=== PATIENT | female | born 1935 | race Caucasian/White ===

== ENCOUNTER → 2017-02-06 | Outpatient (CLI) | payer OTHER | LOC: GIMAGING 14:59 | PROVIDERS: ATTEND Registered Nurse | DX: R06.02 Shortness of breath (principal); I48.91 Unspecified atrial fibrillation; J44.9 Chronic obstructive pulmonary disease, unspecified | CPT/HCPCS: 71020-PO ==

== ENCOUNTER 2017-02-26 09:53 | Emergency (ER) | payer OTHER, BC ==
[2017-02-26 10:16] VITALS: RESP 18
--- NOTE | 2017-02-26 10:33 | CPEKG ---
Heart Rate: 93 RR Interval: 645 P-R Interval: 128 QRSD Interval: 112 QT Interval: 396 QTC Interval: 493 P Phoenix: 64 QRS Phoenix: -36 T Wave Phoenix: 92 EKG Severity - ABNORMAL ECG - EKG Impression: SINUS RHYTHM EKG Impression: LVH WITH IVCD, LAD AND SECONDARY REPOL ABNRM Electronically Signed By: Bev Lazo 26-Feb-2017 14:53:47
--- NOTE | 2017-02-26 10:41 | EDPHY ---
H & P Time Seen by Provider: 02/26/17 10:01 HPI/ROS: CHIEF COMPLAINT: Shortness of breath, generalized weakness HISTORY OF PRESENT ILLNESS: 82-year-old female with a history of COPD and atrial fibrillation presents with shortness of breath and generalized weakness. Over the last 2 days, she has felt generalized weakness. The weakness increases with standing. Associated with lack of appetite. She also has a 3 month history of gradually increasing shortness of breath. She saw her primary care provider who gave her an inhaler for COPD with some relief. Associated with a chronic cough, without recent change. She is mainly concerned that Eliquis is causing side effects and that this is the reason for the shortness of breath and generalized weakness. Because of this, she has started taking aspirin in the morning and Eliquis at night. Recent cardiac catheterization and nuclear stress test performed in 07/2016 in [place] reportedly normal. No chest pain or chest pressure today. No recent illness, fever or injury. REVIEW OF SYSTEMS: Constitutional: No fever, no chills Eyes: No visual changes ENT: No sore throat Cardiac: No chest pain Gastrointestinal: No nausea, no vomiting, no abdominal pain Genitourinary: No hematuria, no dysuria Musculoskeletal: No leg pain or swelling Skin: No rash Neurological: No headache Psychiatric: Feels anxious Past Medical/Surgical History: Atrial fibrillation, on Eliquis COPD Rheumatoid arthritis Social History: Lives at [facility] in her own apartment Smoking Status: Never smoked Physical Exam: General Appearance: Alert, pleasant Eyes: Pupils equal and round, no conjunctival pallor or injection ENT, Mouth: Mucous membranes moist Neck: Normal inspection Respiratory: normal respiratory rate, rales chcf up bilaterally Cardiovascular: Regular rate and rhythm, 2/6 systolic murmur Gastrointestinal: Abdomen is soft and nontender Neurological: A&O, nonfocal exam Skin: Warm and dry, no rash Extremities: Deformity of digits Psychiatric: Mood and affect normal Constitutional: Initial Vital Signs Heart Rate 87 02/26/17 10:13 Respiratory Rate 18 02/26/17 10:13 Blood Pressure 150/102 H 02/26/17 10:13 O2 Sat (%) 95 02/26/17 10:13 O2 Delivery Mode Room Air Allergies/Adverse Reactions: No Known Allergies Allergy (Unverified 02/26/17 10:17) Medical Decision Making - Diagnostics EKG Interpretation: EKG interpreted by me reveals normal sinus rhythm, rate 93, LVH. Interpretation abnormal EKG Imaging Results: Chest x-ray independently reviewed by me reveals no acute infiltrate. ED Course/Re-evaluation: This patient presents with generalized weakness and fatigue, mainly concerned about her Eliquis. Vital signs are normal, including oxygen saturation of 95% on room air. EKG reveals normal sinus rhythm, without evidence of ischemia or dysrhythmia. I will proceed with a cardiopulmonary evaluation and look for any sign of infection, including urinary source. Laboratory testing, urinalysis and x-ray revealed no acute etiology for patient' s symptoms. She ambulated throughout the emergency department with a steady gait and maintained an oxygen saturation of 93% on room air. I feel that she is safe and stable for discharge home. I think that the primary concern is the Eliquis and she would like to discontinued Eliquis. I suggested that she follow up with her primary physician to consider taking aspirin instead. For now she will continue Eliquis. Differential Diagnosis: Altered mental status including but not limited to congestive heart failure, pneumonia, urinary tract infection, COPD exacerbation, hypoglycemia, infectious process, electrolyte abnormality, head injury and intoxicants. - Data Points Laboratory Results: Laboratory Results 02/26/17 11:20 02/26/17 11:20 Departure - Departure Disposition: Home, Routine, Self-Care Clinical Impression: Generalized weakness Dyspnea Qualifiers: Dyspnea type: dyspnea on exertion Qualified Code(s): R06.09 - Other forms of dyspnea Condition: Good Instructions: Weakness (ED), Dyspnea (ED) Additional Instructions: Return for worsening symptoms or any concerns. Referrals: Mehreen Minaya, COMMUNITY RELATIONS OFFICER [Primary Care Provider] - As per Instructions (Call to make an appointment.)
[2017-02-26 11:13] VITALS: O2SAT 97
[2017-02-26 11:29] LABS: PLATELET COUNT 234 10^3/uL (150-400)
[2017-02-26 12:13] VITALS: BP 122/78; PULSE 88
== END 2017-02-26 12:57 | disposition home or self-care (01) ==
DX: R06.09 Other forms of dyspnea (principal); R53.1 Weakness; J44.9 Chronic obstructive pulmonary disease, unspecified

== ENCOUNTER 2017-03-07 17:35 | Emergency (ER) | payer OTHER, BC ==
[2017-03-07 17:58] VITALS: TEMP 97.5
--- NOTE | 2017-03-07 18:13 | CPEKG ---
Heart Rate: 91 RR Interval: 659 P-R Interval: 116 QRSD Interval: 102 QT Interval: 380 QTC Interval: 468 P Laverne: 56 QRS Laverne: -37 T Wave Laver[place]: 120 EKG Severity - ABNORMAL ECG - EKG Impression: SINUS RHYTHM EKG Impression: LEFT AXIS DEVIATION EKG Impression: LVH WITH SECONDARY REPOLARIZATION ABNORMALITY EKG Impression: ANTERIOR ST ELEVATION, PROBABLY DUE TO LVH Electronically Signed By: Corey Brand 07-Mar-2017 21:55:13
--- NOTE | 2017-03-07 18:40 | EDPHY ---
H & P Stated Complaint: pt c/o sob and palpatation- states anxiety, dtg request Mental eval Time Seen by Provider: 03/07/17 18:21 - Medical/Surgical History Hx Asthma: Yes Hx Chronic Respiratory Disease: Yes Hx Diabetes: No Hx Cardiac Disease: Yes Hx Renal Disease: No Hx Cirrhosis: No Hx Alcoholism: No Hx HIV/AIDS: No Hx Splenectomy or Spleen Trauma: No Other PMH: rhuemtoid arthritis, osteo arthritis, diverticulitis, anorexia, a- fib. anxety - Social History Smoking Status: Never smoked Constitutional: Initial Vital Signs Temperature (C) 36.4 C 03/07/17 17:54 Heart Rate 92 03/07/17 17:54 Respiratory Rate 20 03/07/17 17:54 Blood Pressure 149/91 H 03/07/17 17:54 O2 Sat (%) 90 L 03/07/17 17:54 O2 Delivery Mode Room Air Allergies/Adverse Reactions: No Known Allergies Allergy (Unverified 02/26/17 10:17) Home Medications: Medication Instructions Recorded Aspirin 03/07/17 Metoprolol Tartrate 03/07/17 Prednisone 03/07/17 Qvar 03/07/17 Medical Decision Making ED Course/Re-evaluation: CHIEF COMPLAINT: Anxiety HISTORY OF PRESENT ILLNESS: 82-year-old female with significant anxiety. She lives at [facility]. She has a history of atrial fibrillation and sometimes gets palpitations. She had a few palpitations today and then she got very anxious. She decided to go to an urgent care but they thought that she would be best seen at an emergency department. She came here but she said by the time she got her all her symptoms were better and she does no longer feel anxious. She has a long history of anxiety. REVIEW OF SYSTEMS: A 10 point review of systems was performed and is negative with the exception of the elements mentioned in the history of present illness. PHYSICAL EXAM: HR, BP, O2 Sat, RR. Temp noted General Appearance: Alert, well hydrated, appropriate, and non-toxic appearing. Head: Atraumatic without scalp tenderness or obvious injury Eyes: Pupils equal, round, reactive to light and accommodation, EOMI, no trauma , no injection. Ears: Clear bilaterally, no perforation, normal landmarks Nose: Atraumatic, no rhinorrhea, clear. Throat: There is no erythema or exudates, no lesions, normal tonsils, mucus membranes moist. Neck: Supple, 2+ carotid upstroke, nontender, no lymphadenopathy. Respiratory: No retractions, no distress, no wheezes, and no accessory muscle use. Lungs are clear to auscultation bilaterally. Cardiovascular: Regular rate and rhythm, no murmurs, rubs, or gallops. Bilateral carotid, radial, dorsalis pedis, and posterior tibial pulses intact. Good capillary refill all extremities. Gastrointestinal: Abdomen is soft, nontender, non-distended, no masses, no rebound, no guarding, no peritoneal signs. Musculoskeletal: Normal active ROM of all extremities, atraumatic. Neurological: Alert, appropriate, and interactive. The patient has normal DTRs and non-focal cranial nerves, motor, sensory, and cerebellar exam. Skin: No rashes, good turgor, no nodules on palpation. Past medical history: Anxiety, aortic stenosis, atrial fibrillation Past surgical history: Noncontributory Family history: Noncontributory Social history: , lives at [facility] which is an assisted living facility, does not use tobacco drugs or alcohol, has family in the area DIFFERENTIAL DIAGNOSIS: Includes but is not limited to: Anxiety, rapid atrial fibrillation, supraventricular tachycardia, ventricular tachycardia MEDICAL DECISION MAKING: This patient has no symptoms are whatsoever she feels perfectly fine. She thinks she just had an anxiety attack after a few palpitations. She has good follow-up including appoint with her wooden box maker in a couple of days. She also has assistance at her living situation if she feels any additional symptoms she will come back here. She had a big workup a week ago for similar situation and everything was negative. She does not want a another big workup today. Departure - Departure Disposition: Home, Routine, Self-Care Clinical Impression: Anxiety Condition: Good Instructions: Anxiolysis in Adults (ED) Referrals: Mehreen Minaya, IRRIGATOR [Primary Care Provider] - As per Instructions
[2017-03-07 19:00] VITALS: BP 147/91; PULSE 89; RESP 16; O2SAT 91
== END 2017-03-07 19:05 | disposition home or self-care (01) ==
DX: F41.9 Anxiety disorder, unspecified (principal); J45.909 Unspecified asthma, uncomplicated; Z79.82 Long term (current) use of aspirin

== ENCOUNTER 2017-03-12 12:03 | Emergency (ER) | payer OTHER, BC ==
--- NOTE | 2017-03-12 14:44 | EDPHY ---
H & P Stated Complaint: sent from for hypoxia, cough Time Seen by Provider: 03/12/17 14:42 HPI/ROS: CHIEF COMPLAINT: Chronic cough HISTORY OF PRESENT ILLNESS: The patient is referred to the emergency department from urgent care with a history of chronic cough. The patient has a history of atrial fibrillation which has been relatively rate controlled. She is not anticoagulated. The patient denies any chest pain or fever. She has had a cough for several weeks. She had a chest x-ray performed 3 weeks ago which demonstrated a questionable pneumonia. She was not treated with antibiotics at that point time. The patient has a history of rheumatoid arthritis and is on 5 mg of prednisone daily. She does use an albuterol inhaler approximately once a day. The patient denies any weight gain, asymmetric calf pain or swelling or pleuritic chest pain. REVIEW OF SYSTEMS: A comprehensive 10 point review of systems is otherwise negative aside from elements mentioned in the history of present illness. Source: Patient Exam Limitations: No limitations - Personal History Current Tetanus/Diphtheria Vaccine: Unsure Current Tetanus Diphtheria and Acellular Pertussis (TDAP): Unsure - Medical/Surgical History Hx Asthma: Yes Hx Chronic Respiratory Disease: Yes Hx Diabetes: No Hx Cardiac Disease: Yes Hx Renal Disease: No Hx Cirrhosis: No Hx Alcoholism: No Hx HIV/AIDS: No Hx Splenectomy or Spleen Trauma: No Other PMH: rhuemtoid arthritis, osteo arthritis, diverticulitis, anorexia, a-fib , anxiety - Social History Smoking Status: Never smoked - Physical Exam Exam: General Appearance: Thin female, cachectic, no acute distress Eyes: Pupils equal and round no pallor or injection ENT, Mouth: Mucous membranes moist Respiratory: There are no retractions, lungs are clear to auscultation Cardiovascular: Regular rate and rhythm Gastrointestinal: Abdomen is soft and nontender, no masses, bowel sounds normal Neurological: A&O, normal motor function, normal sensory exam, normal cranial nerves Skin: Warm and dry, no rashes Musculoskeletal: Kyphosis Extremities: Extremity changes consistent with rheumatoid arthritis Constitutional: Initial Vital Signs Temperature (C) 36.8 C 03/12/17 12:08 Heart Rate 78 03/12/17 12:08 Respiratory Rate 18 03/12/17 12:08 Blood Pressure 136/80 H 03/12/17 12:08 O2 Sat (%) 94 03/12/17 12:08 O2 Delivery Mode Room Air Allergies/Adverse Reactions: No Known Allergies Allergy (Unverified 02/26/17 10:17) Home Medications: Medication Instructions Recorded Aspirin 03/07/17 Metoprolol Tartrate 03/07/17 Prednisone 03/07/17 Qvar 03/07/17 AZITHROMYCIN [Z-PACK] 250 mg PO DAILY #1 packet 03/12/17 predniSONE 2 tab PO DAILY #8 tablet 03/12/17 Medical Decision Making - Diagnostics Imaging Results: Imaging Impressions Chest X-Ray 03/12/17 14:14 Impression: 1.Compensated chronic CHF. 2.No obvious pneumonia. Noncontrast CT might be useful to evaluate for occult pneumonia. 3. Atherosclerosis. ED Course/Re-evaluation: The patient presents to the ED with a chronic cough for the past several weeks. The patient's chest x-ray demonstrates no evidence of a acute pneumonia. The patient's oxygen saturation is 94% on room air on my check. The patient is in no acute distress sitting in the room with normal respiratory effort and able to speak in full sentences. Given the duration of her symptoms she will be started on a course of antibiotics to cover for atypical pathogens. The patient is also given a prescription for a 40 mg daily prednisone burst for 4 days. The patient is advised to follow up with her primary care provider. She should return to the ED for markedly worsening symptoms or other concerns. Differential Diagnosis: Differential diagnosis considered includes asthma, bronchitis, pneumonia, heart failure Departure - Departure Disposition: Home, Routine, Self-Care Clinical Impression: Acute bronchitis Condition: Good Instructions: Acute Bronchitis (ED) Additional Instructions: 1. Take prednisone as directed for next 4 days. 2. Antibiotics as prescribed. 3. Return to the ED for markedly worsening symptoms or other concerns. Referrals: Mehreen Minaya, CASE PICKER [Primary Care Provider] - As per Instructions
[2017-03-12 15:30] VITALS: BP 129/64; PULSE 86; RESP 16; TEMP 98.1; O2SAT 91
== END 2017-03-12 15:47 | disposition home or self-care (01) ==
DX: J20.9 Acute bronchitis, unspecified (principal); J45.909 Unspecified asthma, uncomplicated; Z79.82 Long term (current) use of aspirin